=== PATIENT | female | born 1985 | race Caucasian/White ===

== ENCOUNTER 2018-02-22 02:38 | Emergency (ER) | payer OTHER ==
[~2018-02-22] VITALS: Ht 157.5 cm; Wt 70.3 kg
[2018-02-22 02:52] VITALS: BP 132/77
[2018-02-22] MEDS ORDERED: AMOXICILLIN500 MG ORAL (02:53)
[2018-02-22] MEDS ORDERED: IBUPROFEN600 MG ORAL (02:53)
--- NOTE | 2018-02-22 02:56 | Emergency Room Report ---
History of Present Illness General Chief Complaint: Skin Rash/Abscess Source: Patient Present Illness HPI Patient presents with complaints of swelling to the right lower gingival area Patient reports that she has had this problem off and on for past several months The area does get more swollen and calms down Pain is now shooting up or to the jaw area Denies any fevers or chills Denies any difficulty swallowing Denies any rash Allergies: Coded Allergies: No Known Allergies (Unverified , 02/22/18) Patient History Past Medical History: see triage record Pertinent Family History: none Last Menstrual Period: 2 weeks ago Now: No Reviewed Nursing Documentation: PMH: Agreed; PSxH: Agreed Nursing Documentation-PMH Past Medical History: No Stated History Review of Systems All Other Systems: negative except mentioned in HPI Physical Exam Vital Signs Date Time Temp Pulse Resp B/P (MAP) Pulse Ox O2 Delivery O2 Flow Rate FiO2 02/22/18 02:39 97.9 112 16 132/77 96 Room Air Sp02 EP Interpretation: reviewed, normal General Appearance: well appearing, no apparent distress Head: normocephalic, atraumatic Eyes: bilateral eye PERRL, bilateral eye EOMI ENT: other - Dental decay #2 tooth, associated laterally on the similar gingival area some mild inflammation and swelling to the region, no obvious pus Neck: full range of motion, supple Respiratory: lungs clear Cardiovascular #1: regular rate, rhythm Gastrointestinal: non tender, soft Musculoskeletal: normal inspection Neurologic: alert, oriented x3 Skin: normal color, no rash Lymphatic: no adenopathy Medical Decision Making Diagnostic Impression: Primary Impression: dental decay ER Course Given the exam and findings patient is placed on amoxicillin there appears to be some relation with decay to the dental region mainly adjacent to that Patient requires close outpatient dental follow-up Last Vital Signs Date Time Temp Pulse Resp B/P (MAP) Pulse Ox O2 Delivery O2 Flow Rate FiO2 02/22/18 02:39 97.9 112 16 132/77 96 Room Air Status: improved Disposition: HOME, SELF-CARE Condition: Stable Scripts Amoxicillin* (AMOXIL*) 500 Mg Capsule 500 MG ORAL THREE TIMES A DAY, #21 CAP Prov: Karena Alcantar DO 02/22/18 Ibuprofen* (MOTRIN*) 600 Mg Tablet 600 MG ORAL Q8H PRN for For Pain, #20 TAB 0 Refills Prov: Karena Alcantar DO 02/22/18 Patient Instructions: Dental Caries, [id number], Dental Pain, [id number] Additional Instructions: Patient is provided with the discharge instructions notified to follow up with primary doctor in the next 2-3 days otherwise return to the er with any worsening symptoms. Please note that this report is being documented using DRAGON technology. This can lead to erroneous entry secondary to incorrect interpretation by the dictating instrument. Karena Alcantar DO Feb 22, 2018 02:56
[2018-02-22 03:01] VITALS: BP 128/75
[2018-02-22 03:02] VITALS: BP 128/75
== END 2018-02-22 03:00 | disposition home or self-care (01) ==
LOC: EMR 02:47
DX: K02.9 Dental caries, unspecified (principal)
CPT/HCPCS: 99283

== ENCOUNTER 2019-10-31 07:46 | Emergency (ER) | payer OTHER ==
[~2019-10-31 07:46] MED LIST: AMOXICILLIN500 MG ORAL; IBUPROFEN600 MG ORAL
[2019-10-31] MEDS ORDERED: POLYTRIM OP SOL10 ML LEFT EYE (08:15)
== END 2019-10-31 08:20 | disposition home or self-care (01) ==
DX: H10.9 Unspecified conjunctivitis (principal); R07.0 Pain in throat; F17.200 Nicotine dependence, unspecified, uncomplicated

== ENCOUNTER 2020-04-19 02:26 | Emergency (ER) | payer OTHER ==
[~2020-04-19] VITALS: Ht 157.5 cm; Wt 72.6 kg
[~2020-04-19 02:26] MED LIST changes: +POLYTRIM OP SOL10 ML LEFT EYE
--- NOTE | 2020-04-19 02:31 | Emergency Room Report ---
History of Present Illness General Chief Complaint: To Be Triaged Source: Patient Present Illness HPI 34-year-old female with past medical history of chalmydia and HPV presenting with chief complaint of dysuria. Also complains of left lower quadrant pelvic pain since 04/09/2020. Patient endorses normal diet, nausea, fatigue, and intermittent vaginal bleeding. Denies hematuria, melena, hematochezia, fever, abdominal pain, flank pain, back pain, rash, headache, chest pain, shortness of breath or any other symptoms. She states that she is sexually active with one male partner, however is experiencing vaginal discharge and therefore is concerned for sexually transmitted infection. Last menstrual period was about a month ago. She is unsure if she is or not. The patient's symptoms were gradual onset, severity was moderate, duration since a few weeks. Quality: Aching Past medical history: HPV, chlamydia Past surgical history: Colposcopy Smoking: Denies Alcohol use: Denies Drug use: Denies Review of systems: CONST: No fevers or chills, No night sweats PULMONARY: No productive cough, No shortness of breath CARDIAC: No chest pain, No palpitations GI: No vomiting, No diarrhea , No melena_or_BRBPR : No dysuria, No hematuria, No discharge NEURO: No new_focal_weakness_or_numbness, No confusion, No vision changes 14 point Review of Systems is otherwise negative except per HPI Physical Exam: GENERAL: Awake_alert_ nontoxic, no acute distress Spo2 98% on RA -normal EYES: Extraocular muscles are intact. Conjunctivae clear. Lids without swelling ENT: External nose and ear normal_in_appearance. Oropharynx clear. Head_atraumatic, Moist_oral_mucosa NECK: No JVD. No meningismus. No thyromegaly. Supple. Trachea midline RESP: Normal respiratory effort. Symmetric rise. No stridor. Cl ear_to_auscultation_No_rales_No_wheezes CARDIAC: Regular rate and regular rhytm. No_significant pedal edema. ABDOMEN: Palpable mass in left inguinal region, TTP. No peritonitis, no rebound or guarding. Neg murphys, rosvings sign. : Chaperoned. ++CMT. ++bloody Mucopurulent cervicitis. No adnexal TTP or mass Soft. Nondistended. Nontender_No_rebound_or_guarding. No pelvic instability. No CVA tenderness to palpation MSK: Normal muscle tone, without rigidity. Extremities without asymmetric deformity or swelling. SKIN: Warm and dry. No visible cyanosis or pallor NEUROLOGIC: Alert, oriented x3. Motor_and_sensation_grossly_intact. No truncal ataxia. Gait_normal Psych: Normal mood and affect, normal judgment and insight - COORDINATION OF CARE Case was discussed with: Patient Any labs and imaging that were ordered were interpreted as part of the medical decision making: Medical Decision Making/Plan: Differential diagnosis includes chlamydia, gonorrhea, other STDs, UTI, TOA, he rnia, among others Patient is nontoxic and well-appearing, no evidence of sepsis or pyelonephritis based on presentation. exam shows mucopurulent cervicitis and CMT. Trace vaginal bleeding without hemorrhage. No L adnexal TTP or RUQ TTP. Labs are unremarkable. No signs of sepsis. Patient is not . UA is consistent with cystitis. Pelvic US shows fibroid uterus but is otherwise negative for TOA or free fluid. CT abd/pelvis demonstrates left inguinal LAD, cervicitis, PID. Patient was empirically treated with ceftriaxone and azithromycin for chlamydia versus gonorrhea. Will dc with keflex, bactrim. Advised no drinking alcohol x 7 days. Safe sex practices were discussed. Will DC with flagyl x 14 days, doxy x 14 days. Advised recheck within 2-3 days and f/u [employer]IVE within 3 days and to take full course of abx prescribed due to risk of infertility with STI. Advised repeat pap in 3 weeks. No sex x 2 weeks. No sexual intercourse with untreated partners x 60 days. Patient understands to get the rest of STD testing with their PMD including HIV and syphilis, among others. Pertinent results reviewed with the patient. I educated the patient on the current treatment plan including the risks, benefits, and alternatives. I also discussed the extent and limitations of the current evaluation. The patient expressed understanding and agreement with plan. I recommended PMD follow-up within 1-2 days. Also advised that the patient return to the Emergency Department as soon as possible if they experience any new, persistent, or worsening symptoms. Allergies: Coded Allergies: No Known Allergies (Unverified , 02/22/18) COVID-19 Screening Contact w/high risk pt: No Experienced COVID-19 symptoms?: Yes Physical Exam Sp02 EP Interpretation: reviewed, normal Medical Decision Making Diagnostic Impression: Primary Impression: UTI (urinary tract infection) Additional Impressions: Encounter for sexually transmitted disease counseling PID (acute pelvic inflammatory disease) Cervicitis Cystitis Inguinal lymphadenopathy Fibroid DUB (dysfunctional uterine bleeding) CT/MRI/US Diagnostic Results CT/MRI/US Diagnostic Results : Impression CT Abdomen and Pelvis With Intravenous Contrast FINDINGS: Artifacts: Motion degraded study. Lung bases:Unremarkable. No mass. No consolidation. ABDOMEN: Liver:Unremarkable. No mass. Gallbladder and bile ducts:Unremarkable. No calcified stones. No ductal dilation. Pancreas:Unremarkable. No mass. No ductal dilation. Spleen:Unremarkable. No splenomegaly. Adrenals:Unremarkable. No mass. Kidneys and ureters:Unremarkable. No solid mass. No hydronephrosis. Stomach and bowel:Unremarkable. No obstruction. No mucosal thickening. PELVIS: Appendix:No findings to suggest acute appendicitis. Bladder: Moderate bladder wall thickening with reticulation suspicious for cystitis. Reproductive:Nonspecific distention of the endometrial cavity. At least mild enlargement of the cervix with paracervical stranding. Question distended endocervical canal. ABDOMEN and PELVIS: Intraperitoneal space:Unremarkable. No free air. No significant fluid collection. Bones/joints:No acute fracture. No dislocation. Soft tissues:Unremarkable. Vasculature:Unremarkable. No abdominal aortic aneurysm. Lymph nodes: There is left external iliac lymphadenopathywith enlarged lymph nodes extending into the left groin. IMPRESSION: Cystitis and heterogeneous cervical enlargement with adjacent stranding, indeterminate for cervicitis/PID. Pelvic clinical exam Indeterminate left external iliac and left inguinal lymphadenopathy. Radiologist: Garth Encarnacion, DO Diagnostic POCUS Bedside Ultrasound Diagnostics: Comment US Pelvis Transabdominal, Complete FINDINGS: The uterus measures 10.0 x 7.1 x 6.0 cm. Posterior fundal fibroid measures 1.5 x 2.2 cm. Thickened endometrial complex measuring 2.2 cm. This is beyond the thickness for the secretory phase of the menstrual cycle. The right ovarymeasures 3.7 x 3.0 x 2.0 cm. Normal color flowand Doppler interrogation. The left ovarymeasures 1.9 x 3.7 x 2.9 cm. Normal color flowand Doppler interro gation. No free fluid in the pelvis. IMPRESSION: Posterior fundal fibroid measures 1.5 x 2.2 cm. Thickened endometrial complex measuring 2.2 cm. Radiologist: David Scruggs MD Disposition: HOME, SELF-CARE Admit Decision Time: 05:00 Condition: Stable Scripts Metronidazole* (FLAGYL*) 500 Mg Tablet 500 MG ORAL BID for 14 Days, #28 TAB Prov: Aletha Luna D.O. 04/19/20 Doxycycline Monohydrate* (DOXYCYCLINE MONOHYDRATE*) 100 Mg Capsule 100 MG ORAL Q12H for 14 Days, #28 CAP 0 Refills Prov: Aletha Luna D.O. 04/19/20 Phenazopyridine Hcl* (PYRIDIUM*) 100 Mg Tablet 100 MG ORAL BID for 2 Days, #4 TAB Prov: Aletha Luna D.O. 04/19/20 Patient Instructions: Dysuria, Pelvic Inflammatory Disease, [id number], Sexually Transmitted Disease, [id number], Urinary Tract Infection, [id number] Additional Instructions: Instructions for patient/family preservation worker: Follow up with your physician in 1-2 days for follow up for your pelvic inflammatory disease. Do not have sex for at least 2 weeks. Use condoms. Do not have sex until all sexual partners are treated for STDs. Do not drink alcohol while taking your antibiotics. [employer]IVE follow up within 3 weeks for pap smear. Follow-up with your doctor sooner if your condition requires a more timely clinical reevaluation. Return to the emergency department immediately if you feel that your condition is worsening or if you have any new or concerning symptoms. Review your discharge instructions and take any prescriptions given as instructed. [facility] PROVIDES FREE OR LOW-COST HEALTH SERVICES TO PEOPLE WHO CAN SHOW PROOF THAT THEY LIVE IN [facility]. TO FIND MORE CLINICS PARTNERED WITH [facility] TO PROVIDE SERVICE, PLEASE CALL . Aletha Luna D.O. Apr 19, 2020 02:31
--- NOTE | 2020-04-19 02:38 | NUR ---
Nurse Note: Pt arrived c/o LLQ pain since one week. Pt stated sharp like pain since 1 week. Pt denies n/v/d. Pt stated pain is different from period pain. Urine provided and sent to lab.
[2020-04-19 02:41] VITALS: BP 137/83
[2020-04-19 02:41] LABS: APPEARANCE,URINE SLIGHTLY CLOUDY; BILIRUBIN, URINE NEGATIVE (NEGATIVE); COLOR,URINE PALE YELLOW; GLUCOSE, URINE (UA) NEGATIVE (NEGATIVE); KETONES,URINE NEGATIVE (NEGATIVE); LEUKOCYTE ESTERASE ,URINE 3+ (NEGATIVE); NITRITE,URINE POSITIVE (NEGATIVE); PH,URINE 6 (4.5-8.0); PROTEIN,URINE NEGATIVE (NEGATIVE); UROBILINOGEN,URINE NORMAL MG/DL (0.0-1.0)
[2020-04-19] MEDS ORDERED: Lidocaine 1% MPF 10mg/ml 5ml INJ ONE (02:45)
[2020-04-19] MEDS ORDERED: Azithromycin 250mg tab ORAL ONE (02:45)
[2020-04-19 03:00] LABS: BASOPHILS % (AUTO) 1.1 % (0.0-2.0); HEMATOCRIT 35.1 % (37.0-47.0); HEMOGLOBIN 11.8 G/DL (12.0-16.0); LYMPHOCYTES % (AUTO) 44.4 % (20.0-45.0); MEAN CORPUSCULAR VOLUME 77 FL (80-99); MONOCYTES % (AUTO) 8.4 % (1.0-10.0); PLATELET COUNT 293 K/UL (150-450); RED BLOOD COUNT 4.57 M/UL (4.20-5.40); RED CELL DISTRIBUTION WIDTH 16.4 % (11.6-14.8); WHITE BLOOD COUNT 6.8 K/UL (4.8-10.8)
[2020-04-19] MEDS ORDERED: BACTRIM DS TAB1 EAC1 ORAL (03:00)
[2020-04-19] MEDS ORDERED: PHENAZOPYRIDIN100 MG ORAL (03:00)
[2020-04-19] MEDS ORDERED: CEPHALEXIN500 MG ORAL (03:00)
--- NOTE | 2020-04-19 03:00 | NUR ---
Nurse Note: Bedside US completed by MD; pt stated there is a palpable mass on LT groin area. SLIV LT AC 18 gauge est; blood sent to lab.
[2020-04-19 03:10] LABS: ANION GAP 4 mmol/L (5-15); BLOOD UREA NITROGEN 13 mg/dL (7-18); CALCIUM 8.4 MG/DL (8.5-10.1); CARBON DIOXIDE 28 MMOL/L (21-32); CHLORIDE 105 MMOL/L (98-107); CREATININE 0.9 MG/DL (0.55-1.30); POTASSIUM 3.9 MMOL/L (3.5-5.1); SODIUM 137 MMOL/L (136-145)
[2020-04-19 03:15] LABS: ALANINE AMINOTRANSFERASE 22 U/L (12-78); ALBUMIN 3.3 G/DL (3.4-5.0); ALKALINE PHOSPHATASE 84 U/L (46-116); ASPARTATE AMINO TRANSFERASE 17 U/L (15-37); BILIRUBIN,TOTAL 0.4 MG/DL (0.2-1.0)
[2020-04-19] MEDS ORDERED: Omnipaque-300 100ml vial INJ PRN (03:15)
--- NOTE | 2020-04-19 04:00 | NUR ---
Nurse Note: CT completed. Pt returned to ER bed 2. Pending US. Pt stable, calm, no signs of acute distress.
--- NOTE | 2020-04-19 04:16 | Diagnostic Imaging Report ---
EXAM: CT Abdomen and Pelvis With Intravenous Contrast CLINICAL HISTORY: MASS TECHNIQUE: Axial computed tomography images of the abdomen and pelvis with intravenous contrast. CTDI is 7.20 mGy and DLP is 393.80 mGy-cm. One or more of the following dose reduction techniques were used: automated exposure control, adjustment of the mA and/or kV according to patient size, use of iterative reconstruction technique. COMPARISON: No relevant prior studies available. FINDINGS: Artifacts: Motion degraded study. Lung bases: Unremarkable. No mass. No consolidation. ABDOMEN: Liver: Unremarkable. No mass. Gallbladder and bile ducts: Unremarkable. No calcified stones. No ductal dilation. Pancreas: Unremarkable. No mass. No ductal dilation. Spleen: Unremarkable. No splenomegaly. Adrenals: Unremarkable. No mass. Kidneys and ureters: Unremarkable. No solid mass. No hydronephrosis. Stomach and bowel: Unremarkable. No obstruction. No mucosal thickening. PELVIS: Appendix: No findings to suggest acute appendicitis. Bladder: Moderate bladder wall thickening with reticulation suspicious for cystitis. Reproductive: Nonspecific distention of the endometrial cavity. At least mild enlargement of the cervix with paracervical stranding. Question distended endocervical canal. ABDOMEN and PELVIS: Intraperitoneal space: Unremarkable. No free air. No significant fluid collection. Bones/joints: No acute fracture. No dislocation. Soft tissues: Unremarkable. Vasculature: Unremarkable. No abdominal aortic aneurysm. Lymph nodes: There is left external iliac lymphadenopathy with enlarged lymph nodes extending into the left groin. IMPRESSION: Cystitis and heterogeneous cervical enlargement with adjacent stranding, indeterminate for cervicitis/PID. Pelvic clinical exam required. Indeterminate left external iliac and left inguinal lymphadenopathy.
[2020-04-19] MEDS ORDERED: DOXYCYCLINE MO100 MG ORAL (04:24)
[2020-04-19] MEDS ORDERED: METRONIDAZOLE500 MG ORAL (04:24)
--- NOTE | 2020-04-19 04:39 | NUR ---
Nurse Note: US completed.
[2020-04-19 05:35] VITALS: BP 130/78
--- NOTE | 2020-04-19 05:35 | NUR ---
ED Nurse Note: Pt cleared by health care Provider for discharge. DC instructions/prescription was given and explained to pt and verbalized understanding of teachings. Instructed pt to follow up with PCP within 3-7 days. All medical deviecs such as ID band removed. IV removed; site clean and bandaged. Pt is AAO x4, ambulatory and left with all personal belongings.
--- NOTE | 2020-04-19 05:51 | Diagnostic Imaging Report ---
EXAM: US Pelvis Transabdominal, Complete CLINICAL HISTORY: PAIN TECHNIQUE: Real-time complete transabdominal pelvic ultrasound with image documentation. COMPARISON: No relevant prior studies available. FINDINGS: The uterus measures 10.0 x 7.1 x 6.0 cm. Posterior fundal fibroid measures 1.5 x 2.2 cm. Thickened endometrial complex measuring 2.2 cm. This is beyond the thickness for the secretory phase of the menstrual cycle. The right ovary measures 3.7 x 3.0 x 2.0 cm. Normal color flow and Doppler interrogation. The left ovary measures 1.9 x 3.7 x 2.9 cm. Normal color flow and Doppler interrogation. No free fluid in the pelvis. IMPRESSION: Posterior fundal fibroid measures 1.5 x 2.2 cm. Thickened endometrial complex measuring 2.2 cm. This is mildly beyond the thickness for the secretory phase of the menstrual cycle. Correlate clinically.
== END 2020-04-19 05:35 | disposition home or self-care (01) ==
LOC: EMR 02:35
DX: N30.90 Cystitis, unspecified without hematuria (principal); Z20.2 Contact with and (suspected) exposure to infections with a predominantly sexual mode of transmission; N73.9 Female pelvic inflammatory disease, unspecified; N72 Inflammatory disease of cervix uteri; R59.0 Localized enlarged lymph nodes; N93.8 Other specified abnormal uterine and vaginal bleeding
CPT/HCPCS: 36415; 74177; 76830; 76856; 80053; 81001; 81025; 83690; 84702; 85025; 85610; 85730; 86850; 86900; 86901; 87086; 96372; J0696; Q0144; Q9965; Z7502; 99284